=== PATIENT | male | born 1975 | race Caucasian/White ===

== ENCOUNTER → 2019-02-18 09:13 | Outpatient (CLI) | payer OTHER, SELFPAY ==
--- NOTE | 2019-02-18 | DI.RAD.S_ITS ---
PROCEDURE: XR HAND LT MIN 3V INDICATIONS: left hand pain TECHNIQUE: 3 views of the hand(s) acquired. COMPARISON: None. FINDINGS: Bones: No fractures or dislocations. Carpal bones are normally aligned. No suspicious bony lesions. Mild radiocarpal joint, triscaphe joint and first metacarpal joint degeneration. Soft tissues: No suspicious soft tissue calcifications. IMPRESSION: Mild degenerative joint disease. Dictated by: Huy Novoa M.D. on 02/18/2019 at 17:27 Approved by: Huy Novoa M.D. on 02/18/2019 at 17:28
== END ==
PROVIDERS: Visit Provider Family Medicine
DX: M79.642 Pain in left hand (principal); M19.042 Primary osteoarthritis, left hand
CPT/HCPCS: 73130